=== PATIENT | male | born 1985 | race Caucasian/White ===

== ENCOUNTER 2017-06-02 12:52 | Emergency (ER) | payer OTHER ==
[2017-06-02 12:52] VITALS: BMI 35.5
[2017-06-02 13:19] VITALS: BP 132/75; PULSE 85; RESP 18; TEMP 98; O2SAT 98
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
--- NOTE | 2017-06-02 14:20 | RAD ---
PROCEDURE: Radiographs of the right humerus. HISTORY: arm pain COMPARISON: None. FINDINGS: BONES: Normal. No fracture or focal lesion. SOFT TISSUES: Normal. OTHER FINDINGS: None. IMPRESSION: Normal radiographs of right humerus.
--- NOTE | 2017-06-02 14:20 | RAD ---
PROCEDURE: Radiographs of the Right Shoulder HISTORY: shoulder pain COMPARISON: No prior. FINDINGS: BONES: Normal. No fracture. JOINTS: Normal. Glenohumeral and acromioclavicular joints preserved. No osteoarthritis. SOFT TISSUES: Normal. OTHER FINDINGS: None. IMPRESSION: Normal radiographs of the right shoulder.
== END 2017-06-02 15:18 | disposition home or self-care (01) ==
LOC: ED 12:52
DX: M25.511 Pain in right shoulder (principal); M79.601 Pain in right arm
CPT/HCPCS: 73030; 73060; 96372; 99285; J1885

== ENCOUNTER 2017-10-11 09:42 | Emergency (ER) | payer OTHER ==
[2017-10-11 09:44] VITALS: BMI 35.5
[2017-10-11 10:30] VITALS: RESP 18; TEMP 98.8
[2017-10-11] MEDS ORDERED: Sodium Chloride 0.9% 1,000 ML IV STA (11:03)
[2017-10-11] MEDS ORDERED: Iohexol 350 MG/100 ML VIAL ONE (11:06)
[2017-10-11 11:39] LABS: BASO # 0.02 K/mm3 (0.0-2.0); BASO % 0.3 % (0.0-3.0); EOS # 0.1 (0.0-0.7); EOS % 1.4 % (1.5-5.0); GRAN # 3.66 (1.4-6.5); GRAN % 56.4 % (50.0-68.0); HEMOGLOBIN 14.5 g/dL (14.0-18.0); LYMPH # 2.1 (1.2-3.4); LYMPH % 32.5 % (22.0-35.0); MEAN CELL VOLUME 87.5 fl (80.0-105.0); MEAN CORPUSCULAR HEMOGLOBIN 28.7 pg (25.0-35.0); MEAN CORPUSCULAR HGB CONC 32.8 g/dl (31.0-37.0); MEAN PLATELET VOLUME 10.4 fl (7.0-11.0); MONO # 0.6 (0.1-0.6); MONO % 9.4 % (1.0-6.0); RBC 5.05 10^6/uL (3.5-6.1); RED CELL DISTRIBUTION WIDTH 12.6 % (11.5-14.5); WHITE BLOOD COUNT 6.5 10^3/ul (4.5-11.0)
[2017-10-11 11:51] LABS: ALB/GLOB RATIO 1.2 (1.1-1.8); ALBUMIN 4.7 g/dL (3.0-4.8); ALT/SGPT 201 U/L (7-56); AST/SGOT 132 U/L (17-59); BLOOD UREA NITROGEN 8 mg/dL (7-21); CALCIUM 10.1 mg/dL (8.4-10.5); GFR AFRICAN-AMERICAN > 60; GFR NON-AFRICAN AMERICAN > 60
--- NOTE | 2017-10-11 14:15 | CT ---
PROCEDURE: CT NECK WITH CONTRAST HISTORY: sore throat, left sided neck mass COMPARISON: None TECHNIQUE: CT of the neck with intravenous contrast. Coronal and sagittal reformats generated. Intravenous contrast dose: Omnipaque 350, 100 cc. Radiation dose: DLP 433.70 mGy-cm This CT exam was performed using one or more of the following dose reduction techniques: Automated exposure control, adjustment of the mA and/or kV according to patient size, and/or use of iterative reconstruction technique. FINDINGS: NASOPHARYNX: Unremarkable. SUPRAHYOID NECK: There is mild enlargement without focal mass seen affecting the left submandibular gland local pair E glandular reactive fatty changes. These changes extend into and through the left platysma muscle into the left cheek and upper neck subcutaneous fat but do not appear to affect the dermis grossly. No emphysema soft tissue changes are identified and there is no definitive sialolithiasis identified. No gross submandibular duct dilatation is appreciated and the pattern is most compatible with left submandibular adenitis. Further clinical correlation is advised. Local shotty reactive lymph nodes are seen associated. The pharynx appears unremarkable diffusely. INFRAHYOID NECK: Unremarkable larynx, hypopharynx, and supraglottic space. Vocal cords intact. MASS: None. GLANDS: The parotid and sublingual glands appear unremarkable bilaterally. Abnormal findings are discussed above related to the left submandibular gland. The right submandibular gland appears normal. Normal size thyroid gland, without nodule. LYMPH NODES: No gross lymphadenopathy identified. CERVICAL SPINE: No fracture or focal lesion. Mild reversal of the upper cervical curvature incidentally noted. VASCULAR STRUCTURES: Unremarkable. OTHER FINDINGS: None. IMPRESSION: Findings most compatible with adenitis of left submandibular gland without obvious ductal dilatation or discrete mass appreciable. Local limited reactive lymph nodes are seen at the submandibular space including local deep and subcutaneous fatty reaction. The left platysma muscle appears inflamed as well. Clinical and potential CT follow-up are advised following therapy.
--- NOTE | 2017-10-11 15:00 | ED PDOC ---
Arrival/HPI - General Chief Complaint: ENT Problem Time Seen by Provider: 10/11/17 11:03 Historian: Patient - History of Present Illness Narrative History of Present Illness (Text): 10/11/17 14:58 31yr old male presents today with 4-5 day history of uri symptoms. pt states over the past 2 days he developed painful lump to the left side of the neck. pt states he started to lose his voice 2 days ago. pt c/o sore throat and left sided neck pain and swelling. pt states he was having nasal congestion. pt c/o subjective fevers. no cp or sob. no vomiting/diarrhea. pt states he went to urgent care center today and was sent to ER for evaluation of left sided neck mass. no medications have been taken for pain/fever at home. no other complaints. Time/Duration: Other (4-5 days) Symptom Onset: Gradual Symptom Course: Worsening Quality: Aching Severity Level: 4 Past Medical History - Provider Review Nursing Documentation Reviewed: Yes - Travel History Have you recently traveled outside [place] w/in the past 3 mons?: No - Infectious Disease Hx of Infectious Diseases: None - Past Medical History Past Medical History: No Previous - Psychiatric Hx Psychophysiologic Disorder: No Hx Physical Abuse: No Hx Substance Use: No - Past Surgical History Past Surgical History: No Previous - Surgical History Hx Tonsillectomy: Yes - Anesthesia Hx Anesthesia: No Hx Anesthesia Reactions: No Hx Malignant Hyperthermia: No - Suicidal Assessment Feels Threatened In Home Enviroment: No Family/Social History - Physician Review Nursing Documentation Reviewed: Yes Family/Social History: Unknown Family HX Smoking Status: Unknown If Ever Smoked Hx Alcohol Use: Yes Hx Substance Use: No Allergies/Home Meds Allergies/Adverse Reactions: Allergies No Known Allergies Allergy (Verified 10/11/17 10:30) Review of Systems - Review of Systems Constitutional: Fevers. absent: Fatigue ENT: Sore Throat, Sinus Congestion Respiratory: Cough. absent: SOB Cardiovascular: absent: Chest Pain, Palpitations Gastrointestinal: absent: Abdominal Pain, Nausea, Vomiting Genitourinary Male: absent: Dysuria Musculoskeletal: absent: Arthralgias, Back Pain Skin: absent: Rash, Pruritis Neurological: absent: Headache, Dizziness Hemo/Lymphatic: Adenopathy Psychiatric: absent: Anxiety, Depression Physical Exam Vital Signs Reviewed: Yes Vital Signs Temp Pulse Resp BP Pulse Ox 10/11/17 14:13 79 18 116/75 99 10/11/17 10:15 98.8 F 98 H 18 114/78 98 Temperature: Afebrile Blood Pressure: Normal Pulse: Regular Respiratory Rate: Normal Appearance: Positive for: Well-Appearing, Non-Toxic, Comfortable Pain Distress: None Mental Status: Positive for: Alert and Oriented X 3 - Systems Exam Head: Present: Atraumatic Conjunctiva: Present: Normal Ears: Present: Normal, NORMAL TM Mouth: Present: Moist Mucous Membranes, Normal Lips, Normal Tounge. No: Drooling, Trismus Pharnyx: Present: ERYTHEMA. No: EXUDATE, TONSILS ENLARGED, Peritonsilar Swelling, Uvular Deviation, Muffled/Hoarse Voice Nose (External): Present: Atraumatic Nose (Internal): Present: Normal Inspection Neck: Present: Normal Range of Motion, Trachea Midline, Other (+ left sided anterior neck tenderness with tender palpable mass without surrounding erythema. ) Respiratory/Chest: Present: Clear to Auscultation Cardiovascular: Present: Regular Rate and Rhythm Neurological: Present: GCS=15 Skin: Present: Warm, Dry, Normal Color. No: Rashes Psychiatric: Present: Alert, Oriented x 3 Medical Decision Making ED Course and Treatment: 10/11/17 15:04 31yr old male with left sided neck pain, swelling and sore throat. cbc; wnl cmp; wnl ct neck: FINDINGS: NASOPHARYNX: Unremarkable. SUPRAHYOID NECK: There is mild enlargement without focal mass seen affecting the left submandibular gland local pair E glandular reactive fatty changes. These changes extend into and through the left platysma muscle into the left cheek and upper neck subcutaneous fat but do not appear to affect the dermis grossly. No emphysema soft tissue changes are identified and there is no definitive sialolithiasis identified. No gross submandibular duct dilatation is appreciated and the pattern is most compatible with left submandibular adenitis. Further clinical correlation is advised. Local shotty reactive lymph nodes are seen associated. The pharynx appears unremarkable diffusely. INFRAHYOID NECK: Unremarkable larynx, hypopharynx, and supraglottic space. Vocal cords intact. MASS: None. GLANDS: The parotid and sublingual glands appear unremarkable bilaterally. Abnormal findings are discussed above related to the left submandibular gland. The right submandibular gland appears normal. Normal size thyroid gland, without nodule. LYMPH NODES: No gross lymphadenopathy identified. CERVICAL SPINE: No fracture or focal lesion. Mild reversal of the upper cervical curvature incidentally noted. VASCULAR STRUCTURES: Unremarkable. OTHER FINDINGS: None. IMPRESSION: Findings most compatible with adenitis of left submandibular gland without obvious ductal dilatation or discrete mass appreciable. Local limited reactive lymph nodes are seen at the submandibular space including local deep and subcutaneous fatty reaction. The left platysma muscle appears inflamed as well. Clinical and potential CT follow-up are advised following therapy. pt reassessment; pt feeling better with toradol. rocephin given IV. case discussed with dr. patel; discussed ct in depth; will d/c home with augmentin and motrin. He advised f/u in the office within the next48 hours. 10/11/17 16:35 I discussed all results in depth with the patient. Stressed the importance of follow-up with the ENT specialist within the next 2 days. Advised sucking on madi, increasing fluids. Taking antibiotics as prescribed. Advised immediate return if symptoms worsen persist or if new concerning symptoms develop Impression: Submandibular adenitis Motrin every 6 hours as needed for pain/fever reduction Augmentin 1 tablet twice daily 10 days increase fluids Follow-up with the ENT specialist within the next 2 days Return immediately if symptoms worsen persist or if new concerning symptoms develop: High fevers, increasing pain, increasing redness, increasing swelling, difficulty breathing or swallowing or if any other concerning symptoms develop - Lab Interpretations Lab Results: 10/11/17 11:10 10/11/17 11:10 Lab Results 10/11/17 11:10: WBC 6.5 D, RBC 5.05, Hgb 14.5, Hct 44.2, MCV 87.5, MCH 28.7, MCHC 32.8, RDW 12.6, Plt Count 251, MPV 10.4, Gran % 56.4, Lymph % (Auto) 32.5, Wilcox % (Auto) 9.4 H, Eos % (Auto) 1.4 L, Baso % (Auto) 0.3, Gran # 3.66, Lymph # (Auto) 2.1, Wilcox # (Auto) 0.6, Eos # (Auto) 0.1, Baso # (Auto) 0.02 10/11/17 11:10: Sodium 146, Potassium 4.4, Chloride 102, Carbon Dioxide 32, Anion Gap 17, BUN 8, Creatinine 0.8, Est GFR ( Amer) > 60, Est GFR (Non- Af Amer) > 60, Random Glucose 115 H, Calcium 10.1, Total Bilirubin 0.5, AST 132 H, ALT 201 H, Alkaline Phosphatase 80, Total Protein 8.6 H, Albumin 4.7, Globulin 3.9, Albumin/Globulin Ratio 1.2 - RAD Interpretation Radiology Orders: 10/11/17 11:03 NECK SOFT TISSUE W/CONTRAST [CT] Stat - Medication Orders Current Medication Orders: Discontinued Medications Sodium Chloride (Sodium Chloride 0.9%) 1,000 mls @ 999 mls/hr IV .Q1H1M STA Stop: 10/11/17 12:03 Last Admin: 10/11/17 11:24 Dose: 999 mls/hr eMAR Start Stop Document 10/11/17 11:24 [facility] (Rec: 10/11/17 11:24 [facility] [id number]) Intravenous Solution Start Date 10/11/17 Start Time 11:24 End Date 10/11/17 End time 12:25 Total Infusion Time 61 Ceftriaxone Sodium (Rocephin 1 Gram Ivpb) 1 gm in 100 mls @ 200 mls/hr IVPB STAT STA PRN Reason: Protocol Stop: 10/11/17 16:22 Last Admin: 10/11/17 16:20 Dose: 200 mls/hr eMAR Start Stop Document 10/11/17 16:20 [facility] (Rec: 10/11/17 16:20 [facility]) Intravenous Solution Start Date 10/11/17 Start Time 16:20 End Date 10/11/17 End time 16:50 Total Infusion Time 30 Ketorolac Tromethamine (Toradol) 30 mg IVP STAT STA Stop: 10/11/17 11:04 Last Admin: 10/11/17 11:10 Dose: 30 mg MAR Pain Assessment Document 10/11/17 11:10 [facility] (Rec: 10/11/17 11:11 [facility] [id number]) Pain Reassessment Is this a pain reassessment? No Sleep Is patient sleeping during reassessment? No Presence of Pain Presence of Pain Yes Pain Scale Used Pain Scale Used Numeric Location Left, Right or Bilateral Left Pain Location Body Site Throat Description Intensity of Pain at present 5 IVP Administration Document 10/11/17 11:10 [facility] (Rec: 10/11/17 11:11 [facility] [id number]) Charges for Administration # of IVP Administrations 1 Disposition/Present on Arrival - Present on Arrival Any Indicators Present on Arrival: No History of DVT/PE: No History of Uncontrolled Diabetes: No Urinary Catheter: No History of Decub. Ulcer: No History Surgical Site Infection Following: None - Disposition Have Diagnosis and Disposition been Completed?: Yes Diagnosis: Infection of submandibular gland Disposition: HOME/ ROUTINE Disposition Time: 16:42 Patient Plan: Discharge Condition: GOOD Additional Instructions: Motrin every 6 hours as needed for pain/fever reduction Augmentin 1 tablet twice daily 10 days increase fluids Follow-up with the ENT specialist within the next 2 days Return immediately if symptoms worsen persist or if new concerning symptoms develop: High fevers, increasing pain, increasing redness, increasing swelling, difficulty breathing or swallowing or if any other concerning symptoms develop Prescriptions: Amoxicillin/Clavulanate [Augmentin 875 MG-125 MG] 1 tab PO BID #20 tab Ibuprofen [Motrin] 600 mg PO Q6H PRN #20 tab PRN Reason: pain/fever reduction Referrals: Joe Reddy MD [Primary Care Provider] - Follow up with primary Stephon Acosta DO [Staff Provider] - Follow up with primary Forms: [employer] ([place]an), WORK NOTE
[2017-10-11] MEDS ORDERED: cefTRIAXone 1 gm 1 GM/100 ML BAG IVPB STA (15:53)
[2017-10-11 16:47] VITALS: BP 122/71; PULSE 72; O2SAT 97
== END 2017-10-11 16:53 | disposition home or self-care (01) ==
LOC: ED 09:42
DX: K11.9 Disease of salivary gland, unspecified (principal)
CPT/HCPCS: 70491; 80053; 85025; 96361; 96365; 96375; 99284; J0696; J1885; J7040; Q9967